=== PATIENT | female | born 1995 | race Caucasian/White ===

== ENCOUNTER 2019-07-13 13:41 | Emergency (ER) | payer MEDICARE ==
[~2019-07-13] VITALS: Ht 152.4 cm; Wt 81.0 kg
[2019-07-13 15:01] VITALS: BP 124/73
== END 2019-07-13 15:01 | disposition home or self-care (01) ==
LOC: ER 14:09
DX: S50.862A Insect bite (nonvenomous) of left forearm, initial encounter (principal); W57.XXXA Bitten or stung by nonvenomous insect and other nonvenomous arthropods, initial encounter; Y93.89 Activity, other specified; Y92.89 Other specified places as the place of occurrence of the external cause
CPT/HCPCS: 99283

== ENCOUNTER 2019-12-07 17:07 | Emergency (ER) | payer MEDICARE ==
[~2019-12-07] VITALS: Ht 152.4 cm; Wt 105.0 kg
[2019-12-07] MEDS ORDERED: HYDROCODONE/ACETAMINOPHEN 5/325MG TABLET PO ONE (19:45)
[2019-12-07 21:04] VITALS: BP 120/75
== END 2019-12-07 21:04 | disposition home or self-care (01) ==
LOC: ER 17:07
DX: S52.122A Displaced fracture of head of left radius, initial encounter for closed fracture (principal); W01.0XXA Fall on same level from slipping, tripping and stumbling without subsequent striking against object, initial encounter; Y93.89 Activity, other specified; Y92.018 Other place in single-family (private) house as the place of occurrence of the external cause
CPT/HCPCS: 29105; 73080; 81025; 99283; A4565